=== PATIENT | female | born 1955 | race Caucasian/White ===

== ENCOUNTER 2016-10-14 17:39 | Emergency (ER) | payer SELFPAY ==
[~2016-10-14] VITALS: Ht 154.9 cm; Wt 52.8 kg
[2016-10-14 17:45] VITALS: BP 160/78
== END 2016-10-14 18:43 | disposition home or self-care (01) ==
LOC: ED 18:38
DX: K02.9 Dental caries, unspecified (principal); K04.7 Periapical abscess without sinus; I10 Essential (primary) hypertension; Z90.710 Acquired absence of both cervix and uterus
CPT/HCPCS: 99283

== ENCOUNTER 2017-03-01 18:12 | Emergency (ER) | payer MEDICAID ==
[~2017-03-01] VITALS: Ht 157.5 cm; Wt 53.5 kg
[2017-03-01] MEDS ORDERED: KETOROLAC 30 MG/1 ML ONE (18:52)
[2017-03-01] MEDS ORDERED: ATEN25TA PO (18:55)
[2017-03-01] MEDS ORDERED: HYDR-3240 PO (18:55)
[2017-03-01] MEDS ORDERED: KETOROLAC 30 MG/1 ML IVPush ONE (19:00)
[2017-03-01] MEDS ORDERED: SODIUM CHLORIDE FLUSH 10ML SYR IVF ONE (19:00)
[2017-03-01] MEDS ORDERED: DIAZEPAM 5 MG/ML, 2ML IVPush ONE (19:00)
[2017-03-01] MEDS ORDERED: HYDROmorphone 2 MG/ML, 1ML IVPush ONE (19:30)
[2017-03-01 19:53] VITALS: BP 142/78
== END 2017-03-01 19:55 | disposition home or self-care (01) ==
LOC: ED 19:49
DX: S29.011A Strain of muscle and tendon of front wall of thorax, initial encounter (principal); M62.830 Muscle spasm of back; I10 Essential (primary) hypertension; X50.1XXA Overexertion from prolonged static or awkward postures, initial encounter; Y93.89 Activity, other specified; Y92.89 Other specified places as the place of occurrence of the external cause; Y99.8 Other external cause status
CPT/HCPCS: 71010; 93005; 96374; 96375; 99284; J1885; J3360